=== PATIENT | female | born 1985 | race African-American/Black ===

== ENCOUNTER 2022-05-17 16:40 | Emergency (ER) | payer BC, MEDICAID, OTHER ==
[~2022-05-17] VITALS: Ht 152.4 cm; Wt 66.7 kg
[2022-05-17 17:05] VITALS: BP 130/90
[2022-05-17] MEDS ORDERED: FLONAS NS (18:20)
[2022-05-17] MEDS ORDERED: ALBU0.0912 IH (18:20)
[2022-05-17] MEDS ORDERED: AMOX1TAB8 PO (18:20)
[2022-05-17] MEDS ORDERED: PROM118S5 PO (18:20)
[2022-05-17 19:29] VITALS: BP 130/90
--- NOTE | 2022-05-17 19:29 | NUR ---
PT LEFT WITHOUT PAPER WORK.Patient discharged with v/s stable. Written and verbal after care instructions given and explained. Patient alert, oriented and verbalized understanding of instructions. Ambulatory with steady gait. All questions addressed prior to discharge. ID band removed. Patient advised to follow up with PMD. Rx of PROVENTIL, AMOX-CLAV, FLONASE,PROMETHAZINE given. Patient educated on indication of medication including possible reaction and side effects. Opportunity to ask questions provided and answered.
== END 2022-05-17 19:20 | disposition home or self-care (01) ==
LOC: MED 16:40
DX: J01.90 Acute sinusitis, unspecified (principal); J40 Bronchitis, not specified as acute or chronic; Z79.899 Other long term (current) drug therapy; Z79.2 Long term (current) use of antibiotics
CPT/HCPCS: 99283

== ENCOUNTER 2023-05-29 15:24 | Emergency (ER) | payer OTHER, BC ==
[~2023-05-29] VITALS: Ht 152.4 cm; Wt 67.8 kg
[~2023-05-29 15:24] MED LIST: ALBU0.0912 IH; AMOX1TAB8 PO; FLONAS NS; PROM118S5 PO
[2023-05-29 15:47] VITALS: BP 108/72; PULSE 89; RESP 18; TEMP 97.8; O2SAT 98
[2023-05-29] MEDS: IBUPROFEN 600 MG TAB PO ONE (16:18)
[2023-05-29] MEDS ORDERED: CYCL-711 PO (16:22)
[2023-05-29] MEDS ORDERED: IBUP-2213 PO (16:22)
[2023-05-29 16:40] VITALS: BP 112/62; PULSE 79; RESP 16; TEMP 98; O2SAT 99
== END 2023-05-29 16:40 | disposition home or self-care (01) ==
LOC: MED 15:24
DX: S16.1XXA Strain of muscle, fascia and tendon at neck level, initial encounter (principal); S39.012A Strain of muscle, fascia and tendon of lower back, initial encounter; R51.9 Headache, unspecified; Z79.899 Other long term (current) drug therapy; V49.88XA Car occupant (driver) (passenger) injured in other specified transport accidents, initial encounter; Y93.89 Activity, other specified; Y92.89 Other specified places as the place of occurrence of the external cause; Y99.8 Other external cause status
CPT/HCPCS: 99283

== ENCOUNTER 2023-09-06 04:39 | Emergency (ER) | payer BC ==
[~2023-09-06] VITALS: Ht 154.9 cm; Wt 63.5 kg
[~2023-09-06 04:39] MED LIST changes: +CYCL-711 PO; +IBUP-2213 PO
[2023-09-06 04:43] VITALS: BP 131/78; PULSE 102; RESP 19; TEMP 98.2; O2SAT 99
[2023-09-06 05:45] LABS: BASOPHILS % (AUTO) 0.8 % (0.0-2.0); EOSINOPHILS # (AUTO) 0.2 K/uL (0-0.4); EOSINOPHILS % (AUTO) 3.3 % (0.0-4.0); HEMATOCRIT 36.9 % (36-48); HEMOGLOBIN 12.4 g/dL (12.0-16.0); LYMPHOCYTES # (AUTO) 1.1 K/uL (2.5-16.5); LYMPHOCYTES % (AUTO) 17.4 % (20.5-51.1); MEAN CORPUSCULAR HEMOGLOBIN 30 pg (27-31); MEAN CORPUSCULAR HGB CONC 34 g/dL (33-37); MEAN CORPUSCULAR VOLUME 87.9 fL (80-94); MONOCYTES # (AUTO) 0.6 K/uL (0.8-1.0); MONOCYTES % (AUTO) 10.5 % (1.7-9.3); NEUTROPHILS # (AUTO) 4.2 K/uL (1.8-7.7); PLATELET COUNT (AUTO) 283 K/uL (140-450); RED CELL DISTRIBUTION WIDTH 14.2 % (11.6-13.7); WHITE BLOOD COUNT (AUTO) 6.1 K/uL (4.8-10.8)
[2023-09-06] MEDS ORDERED: ONDANSETRON 4 MG/2 ML VIAL ONE (05:45)
[2023-09-06] MEDS: ONDANSETRON 4 MG/2 ML VIAL IVP ONE (05:48)
[2023-09-06 05:56] LABS: ANION GAP 14.1 (8-16); CALCIUM 8.1 mg/dL (8.5-10.1); CARBON DIOXIDE 24.6 mmol/L (21-32); CREATININE 0.7 mg/dL (0.6-1.3); POTASSIUM 3.7 mmol/L (3.5-5.1)
[2023-09-06 06:03] LABS: ALBUMIN 3.5 g/dL (3.4-5.0); BILIRUBIN,DIRECT 0.1 mg/dL (0.0-0.3); TOTAL BILIRUBIN 0.2 mg/dL (0.0-1.0)
[2023-09-06 06:03] LABS: FLU A ANTIGEN negative (NEGATIVE); FLU B ANTIGEN NEGATIVE (NEGATIVE)
[2023-09-06 06:21] LABS: APPEARANCE,URINE CLEAR (CLEAR); BILIRUBIN,URINE NEGATIVE (NEGATIVE); BLOOD, URINE TRACE-I (NEGATIVE); COLOR,URINE YELLOW (YELLOW); LEUKOCYTE ESTERASE ,URINE NEGATIVE (NEGATIVE); NITRITE, URINE NEGATIVE (NEGATIVE); PROTEIN,URINE NEGATIVE (NEGATIVE); UGLUCOSE NEGATIVE (NEGATIVE); UROBILINOGEN,URINE 0.2 EU/dL (0.2 - 1)
[2023-09-06] MEDS: ALBUTEROL 0.083% 2.5 MG/3 ML NEBU INH ONE (06:25)
[2023-09-06 06:26] VITALS: PULSE 95; PULSE 96; RESP 16; O2SAT 96
[2023-09-06 06:35] LABS: BACTERIA,URINE FEW /HPF (None Seen); SQUAMOUS EPITHELIAL CELL,UR 4-10 (MOD) /LPF (0-3 (FEW)); WBC,URINE 0-5 /HPF (0-5)
[2023-09-06] MEDS ORDERED: ALBU0.0912 IH (06:48)
[2023-09-06] MEDS ORDERED: AMOX1TAB8 PO (06:48)
[2023-09-06] MEDS ORDERED: AZIT250T4 PO (06:48)
[2023-09-06 06:55] VITALS: BP 120/74; PULSE 96; RESP 16; TEMP 98.2; O2SAT 96
== END 2023-09-06 06:55 | disposition home or self-care (01) ==
LOC: MED 04:39
DX: J40 Bronchitis, not specified as acute or chronic (principal); J18.9 Pneumonia, unspecified organism; R03.0 Elevated blood-pressure reading, without diagnosis of hypertension; Z20.822 Contact with and (suspected) exposure to COVID-19; Z79.1 Long term (current) use of non-steroidal anti-inflammatories (NSAID); Z79.2 Long term (current) use of antibiotics; Z79.899 Other long term (current) drug therapy
CPT/HCPCS: 36415; 71045; 80048; 80076; 81001; 81025; 85025; 87426; 87804; 94640; 99284; J7613; Q0092; J2405; J7030